=== PATIENT | female | born 1995 | race Caucasian/White ===

== ENCOUNTER → 2018-04-04 | Outpatient (CLI) | payer BC ==
--- NOTE | 2018-04-04 10:42 | RADIOLOGY IMAGING REPORT ---
FACILITY: [facility] [place] PATIENT NAME: Kiara Cardozo : 1995 MR: [id number] V: [id number] EXAM DATE: ORDERING PHYSICIAN: DALILA KNOWLES TECHNOLOGIST: Location: [facility] [place] Patient: Kiara Cardozo : 1995 Visit/Account:[id number] Date of Sevice: 04/04/2018 EXAMINATION: Limited right upper quadrant ultrasound 04/04/2018 9:30 AM HISTORY: Right upper quadrant and epigastric pain. COMPARISON STUDIES: none. FINDINGS: Gallbladder: no stones or sludge. Liver: Negative Common duct: Less than 3 mm Pancreas: negative Right kidney: negative Upper abdominal aorta and IVC: negative Ascites: none IMPRESSION: Normal study Report Dictated By: Italo Escoto MD at 04/04/2018 10:36 AM Report E-Signed By: Italo Escoto MD at 04/04/2018 10:37 AM WSN:[email or web address]
== END ==
LOC: US 09:21
PROVIDERS: ATTEND Physician Assistant
DX: R10.13 Epigastric pain (principal); R10.11 Right upper quadrant pain
CPT/HCPCS: 76705